=== PATIENT | female | born 1975 | race Caucasian/White ===

== ENCOUNTER 2017-06-12 17:32 | Emergency (ER) | payer SELFPAY ==
[2017-06-12] MEDS ORDERED: DIAZEPAM 10 MG/2 ML INJ SYRINGE ONE (17:55)
[2017-06-12] MEDS ORDERED: KETAMINE HCL 1,000 MG/10 ML VIAL ONE (18:07)
[2017-06-12] MEDS ORDERED: PROPOFOL 200 MG/20 ML VIAL IV ONE (18:27)
--- NOTE | 2017-06-12 19:05 | ER ---
Nurse's Notes [facility] Name: Carolina Springer Age: 41 yrs Sex: Female : 1975 Arrival Date: 06/12/2017 Time: 17:34 Bed 14 Private MD: Diagnosis: Trimalleolar fracture of lower leg;Dislocation and sprain of joints and ligaments at ankle, foot and toe level Presentation: 06/12 17:28 Presenting complaint: EMS states: playing basketball around 1615 and rolled her right sv ankle. +swelling and pulses. Denies head injury or LOC. Fentanyl 100 mcg IVP given at 1704. 20G R AC BP 160/90. Transition of care: patient was not received from another setting of care. Onset of symptoms was June 12, 2017 at 16:15. Care prior to arrival: Splint applied. Splint applied. Medication(s) given: Fentanyl IV initiated. 20 GA, in the right antecubital area. 17:28 Method Of Arrival: EMS: [facility] sv 17:28 Acuity: SAGAR 3 sv Triage Assessment: 17:30 General: Appears in no apparent distress. uncomfortable, well developed, Behavior is sv calm, cooperative, appropriate for age. Pain: Complains of pain in right ankle Pain currently is 6 out of 10 on a pain scale. Pain began 1 hour ago. Is intermittent. EENT: No signs and/or symptoms were reported regarding the EENT system. Neuro: Level of Consciousness is awake, alert, obeys commands, Oriented to person, place, time, situation. Cardiovascular: Patient's skin is warm and dry. Pulses are palpable in right posterior tibial artery and left posterior tibial artery. Respiratory: Respiratory effort is even, unlabored, Respiratory pattern is regular, symmetrical. Derm: Skin is normal, Bruising that is dark purple, on right ankle. Musculoskeletal: Range of motion: limited in right ankle. DIRECTOR OF PUPIL PERSONNEL PROGRAM: 17:39 LMP 05/10/2017 sv Historical: - Allergies: 17:39 Aspirin; sv 17:39 Latex, Natural Rubber; sv - Home Meds: 17:39 None [Active]; sv - PMHx: 17:39 None; sv - PSHx: 17:39 eye; vivek feet; sv - Immunization history:: Adult Immunizations up to date. - Social history:: Smoking status: Patient/guardian denies using tobacco. Screenin:39 Abuse screen: Denies threats or abuse. Denies injuries from another. Nutritional sv screening: No deficits noted. Tuberculosis screening: No symptoms or risk factors identified. Fall Risk No fall in past 12 months (0 pts). No secondary diagnosis (0 pts). IV access (20 points). Ambulatory Aid- None/Bed Rest/Nurse Assist (0 pts). Gait- Impaired (20 pts.). Mental Status- Oriented to own ability (0 pts). Total Esquivel Fall Scale indicates Low Risk Score (25-44 pts). Fall prevention measures have been instituted. Side Rails Up X 2 Placed close to Nursing Station Frequent Obs/Assesments occuring Family Present and informed to notify staff if they need to leave bedside As available Patient and Family Educated on Fall Prevention Program and strategies. Assessment: 18:15 Reassessment: See triage assessment. sv 18:25 Reassessment: Pt placed on 100% NRB per Dr Luciano. sv 18:45 Reassessment: See conscious sedation flowsheet for charting. sv 19:06 General: Appears in no apparent distress. uncomfortable, Behavior is appropriate for ao age, drowsy. Pain: Complains of pain in right ankle. Neuro: Level of Consciousness is awake, alert, obeys commands, Oriented to person, place, time, situation, Appropriate for age Weakness Speech is normal, Facial symmetry appears normal. Cardiovascular: Heart tones S1 S2 Patient's skin is warm and dry. Respiratory: Airway is patent Respiratory effort is even, unlabored, Respiratory pattern is regular, Breath sounds are clear bilaterally. GI: Abdomen is non-distended. : No signs and/or symptoms were reported regarding the genitourinary system. EENT: No signs and/or symptoms were reported regarding the EENT system. Derm: Skin is intact. Musculoskeletal: Right ankle splinted. Patient just woke up from reductions of the right ankle. 20:00 Reassessment: DC Instructions given to patient and family patient understand the POC ao and to follow up with Dr lazo. Vital Signs: 17:39 BP 150 / 95; Pulse 96; Resp 18; Temp 98.5; Pulse Ox 97% ; Weight 99.79 kg; Height 5 ft. sv 6 in. (167.64 cm); Pain 6/10; 18:34 BP 135 / 85; Pulse 93 MON; Resp 18; Pulse Ox 100% on Non-rebreather mask; sv 18:45 BP 138 / 97; Pulse 93; Resp 12; Pulse Ox 100% on Non-rebreather mask; sv 17:39 Body Mass Index 35.51 (99.79 kg, 167.64 cm) sv 18:34 Sinus Rhythm sv ED Course: 17:28 Maintain EMS IV. Dressing intact. Good blood return noted. Site clean \T\ dry. Gauge \T\ sv site: 20G R AC. 17:34 Patient arrived in ED. sv 17:34 Ira Garner, SALLY is Primary Nurse. sv 17:37 Jacqui Bergman FNP-C [facility]. snw 17:37 Davie Luciano MD is Attending Physician. snw 17:38 Triage completed. sv 17:39 Arm band placed on left wrist. sv 17:39 Patient has correct armband on for positive identification. Bed in low position. Call sv light in reach. Side rails up X2. Pulse ox on. NIBP on. Door closed. Head of bed elevated. 17:40 Ice pack to injury. sv 17:45 Assist provider with reduction of right ankle using manipulation, Set up for procedure. sv Performed by Davie Luciano MD Patient tolerated well. 18:14 X-ray completed. Portable x-ray completed in exam room. Patient tolerated procedure ml well. 18:14 Ankle Right 2 View In Process Unspecified. EDMS 18:50 Orthoglass splint: Posterior short lleg splint applied on right leg. stirrup splint sv applied on right leg. 18:59 Ankle Right 2 View In Process Unspecified. EDMS 19:04 John Lazo MD is Referral Physician. snw 19:09 Report given to Kareem ZAVALA. sv 19:16 Primary Nurse role handed off by Ira Garner RN sv 19:39 Kareem Ford RN is Primary Nurse. ao 20:02 IV discontinued, intact, bleeding controlled, No redness/swelling at site. Pressure ao dressing applied. Administered Medications: 18:03 Drug: Valium 5 mg Route: IVP; Site: right antecubital; sv 18:24 Follow up: Response: No adverse reaction sv 18:26 CANCELLED (order changed): Ketamine 100 mg IVP once sv 18:45 Drug: Propofol 100 mg {Note: given by Jacqui Coleman NP.} Route: IVP; Site: right sv antecubital; 19:08 Follow up: Response: No adverse reaction sv 18:46 Drug: Propofol 100 mg {Note: given by Jacqui Coleman NP.} Route: IVP; Site: right sv antecubital; 19:09 Follow up: Response: No adverse reaction sv 19:59 Drug: fentaNYL (PF) 75 mcg Route: IM; Site: right gluteus; ao 20:04 Follow up: Response: Medication administered at discharge. ao Outcome: 19:05 Discharge ordered by MD. whiteside 20:02 Discharged to home ambulatory. ao 20:02 Condition: stable 20:02 Discharge instructions given to patient, Instructed on discharge instructions, follow up and referral plans. Demonstrated understanding of instructions, follow-up care, medications, Prescriptions given X 2. 20:04 Patient left the ED. ao Signatures: Dispatcher [employer] EDIra De Leon RN RN sv Therrien, Shelly, ROSALIE-C ROSALIE-Leonila Kaiser Alex RN RN ao Corrections: (The following items were deleted from the chart) 18:35 18:34 BP 135 / 85; Pulse 93bpm; Resp 18bpm; Pulse Ox 100% Non-rebreather mask; sv sv 18:36 16:25 Reassessment: Pt placed on 100% NRB per Dr Luciano sv
--- NOTE | 2017-06-12 19:05 | EDPHYS ---
Physician Documentation [facility] Name: Carolina Springer Age: 41 yrs Sex: Female : 1975 Arrival Date: 06/12/2017 Time: 17:34 Bed 14 Private MD: ED Physician Davie Luciano HPI: 06/12 18:27 This 41 yrs old Female presents to ER via EMS with complaints of Ankle Injury.snw 18:27 The patient presents with decreased range of motion, a deformity, pain, that is acute. snw Onset: The symptoms/episode began/occurred suddenly, just prior to arrival. Associated signs and symptoms: The patient has no apparent associated signs or symptoms. Severity of symptoms: At their worst the symptoms were moderate, severe. The patient has not experienced similar symptoms in the past. The patient has not recently seen a physician. WEB SITE ADMIN: 17:39 LMP 05/10/2017 sv Historical: - Allergies: 17:39 Aspirin; sv 17:39 Latex, Natural Rubber; sv - Home Meds: 17:39 None [Active]; sv - PMHx: 17:39 None; sv - PSHx: 17:39 eye; vivek feet; sv - Immunization history:: Adult Immunizations up to date. - Social history:: Smoking status: Patient/guardian denies using tobacco. ROS: 18:03 Constitutional: Negative for fever, chills, and weight loss, Eyes: Negative for injury, snw pain, redness, and discharge, ENT: Negative for injury, pain, and discharge, Neck: Negative for injury, pain, and swelling, Cardiovascular: Negative for chest pain, palpitations, and edema, Respiratory: Negative for shortness of breath, cough, wheezing, and pleuritic chest pain, Abdomen/GI: Negative for abdominal pain, nausea, vomiting, diarrhea, and constipation, Back: Negative for injury and pain, : Negative for injury, bleeding, discharge, and swelling, Skin: Negative for injury, rash, and discoloration, Neuro: Negative for headache, weakness, numbness, tingling, and seizure. 18:03 MS/extremity: Positive for injury or acute deformity, decreased range of motion, deformity, pain, swelling, of the right ankle. Exam: 18:02 Constitutional: This is a well developed, well nourished patient who is awake, alert, snw and in no acute distress. Head/Face: Normocephalic, atraumatic. Eyes: Pupils equal round and reactive to light, extra-ocular motions intact. Lids and lashes normal. Conjunctiva and sclera are non-icteric and not injected. Cornea within normal limits. Periorbital areas with no swelling, redness, or edema. ENT: Nares patent. No nasal discharge, no septal abnormalities noted. Tympanic membranes are normal and external auditory canals are clear. Oropharynx with no redness, swelling, or masses, exudates, or evidence of obstruction, uvula midline. Mucous membranes moist. Neck: Trachea midline, no thyromegaly or masses palpated, and no cervical lymphadenopathy. Supple, full range of motion without nuchal rigidity, or vertebral point tenderness. No Meningismus. Chest/axilla: Normal chest wall appearance and motion. Nontender with no deformity. No lesions are appreciated. Cardiovascular: Regular rate and rhythm with a normal S1 and S2. No gallops, murmurs, or rubs. Normal PMI, no JVD. No pulse deficits. Respiratory: Lungs have equal breath sounds bilaterally, clear to auscultation and percussion. No rales, rhonchi or wheezes noted. No increased work of breathing, no retractions or nasal flaring. Abdomen/GI: Soft, non-tender, with normal bowel sounds. No distension or tympany. No guarding or rebound. No evidence of tenderness throughout. Back: No spinal tenderness. No costovertebral tenderness. Full range of motion. Skin: Warm, dry with normal turgor. Normal color with no rashes, no lesions, and no evidence of cellulitis. Neuro: Awake and alert, GCS 15, oriented to person, place, time, and situation. Cranial nerves II-XII grossly intact. Motor strength 5/5 in all extremities. Sensory grossly intact. Cerebellar exam normal. Normal gait. Psych: Awake, alert, with orientation to person, place and time. Behavior, mood, and affect are within normal limits. 18:02 Musculoskeletal/extremity: Extremities: grossly normal except: noted in the right ankle and anterior aspect of right ankle: decreased ROM, deformity, swelling, tenderness, ROM: dislocated fracture, awaiting x-ray and meds, Circulation is intact in all extremities. Sensation intact. Vital Signs: 17:39 BP 150 / 95; Pulse 96; Resp 18; Temp 98.5; Pulse Ox 97% ; Weight 99.79 kg; Height 5 ft. sv 6 in. (167.64 cm); Pain 6/10; 18:34 BP 135 / 85; Pulse 93 MON; Resp 18; Pulse Ox 100% on Non-rebreather mask; sv 18:45 BP 138 / 97; Pulse 93; Resp 12; Pulse Ox 100% on Non-rebreather mask; sv 17:39 Body Mass Index 35.51 (99.79 kg, 167.64 cm) sv 18:34 Sinus Rhythm sv Procedures: 19:09 Splinting: Splint applied to right ankle using Orthoglass splint, applied by tech. post snw reduction film - reveals normal alignment, Examined by me, post splint application: neurovascular intact, 2+ distal pulses palpable, brisk capillary refill noted, Patient tolerated well. Crutch training provided to patient and/or family. Return demonstration given. Reduction: of the right ankle, using manipulation, flexion, Immobilized with OCL splint, Patient tolerated well. Post reduction film - reveals normal alignment. trimalleolar fx. Moderate sedation: Pre-procedure assessment: the patient has been NPO 4 hour(s) prior to arrival, ASA physical classification: II - mild/mod systemic disease that does not interfere with daily routines, Airway assessment: able to hyperextend neck, able to maintain airway, can open mouth without difficulty, Mallampati classification of tongue size: II - faucial pillars and soft palate can be visualized, but uvula is masked by the base of the tongue, Monitoring during procedure: boiler cleaner, continuous pulse oximetry, nurse at bedside at all times, Medications employed: Propofol, Post-procedure assessment: the patient is mildly sedated, Sparks sedation score: 2 - patient cooperative, oriented, and tranquil, Respiratory status: even and unlabored, a reversal agent was not used. MDM: 17:49 Patient medically screened. snw 19:06 Data reviewed: vital signs, nurses notes. Data interpreted: Pulse oximetry: on room air snw is 100 %. Interpretation: normal. Test interpretation: by ED physician or midlevel provider: plain radiologic studies, ankle - fracture dislocation of right ankle, trimalleolar. Counseling: I had a detailed discussion with the patient and/or guardian regarding: the historical points, exam findings, and any diagnostic results supporting the discharge/admit diagnosis, the presence of at least one elevated blood pressure reading (>120/80) during this emergency department visit, radiology results, the need for outpatient follow up, to return to the emergency department if symptoms worsen or persist or if there are any questions or concerns that arise at home. Response to treatment: the patient's symptoms have markedly improved after treatment. 19:20 Physician consultation: John Lazo MD was called at 19:20, was contacted at 19:20, snw regarding patient's condition, outpatient follow-up, in 2-3 days. 06/12 18:14 Order name: Ankle Right 2 View; Complete Time: 19:28 EDMS 06/12 18:21 Order name: Ankle Right 2 View; Complete Time: 19:44 EDMS 06/12 18:01 Order name: Conscious Sedation; Complete Time: 18:22 snw 06/12 18:01 Order name: Posterior Leg Splint: with stirrup and extra padding; Complete Time: 19:09 snw 06/12 18:02 Order name: Suction; Complete Time: 18:04 snw 06/12 18:02 Order name: EKG; Complete Time: 18:02 snw 06/12 18:02 Order name: EKG - Nurse/Tech; Complete Time: 18:34 snw 06/12 19:44 Order name: Crutches; Complete Time: 19:59 snw 06/12 19:44 Order name: Crutch Training; Complete Time: 19:59 snw Administered Medications: 18:03 Drug: Valium 5 mg Route: IVP; Site: right antecubital; sv 18:24 Follow up: Response: No adverse reaction sv 18:26 CANCELLED (order changed): Ketamine 100 mg IVP once sv 18:45 Drug: Propofol 100 mg {Note: given by Jacqui T. DYNAMICIST.} Route: IVP; Site: right sv antecubital; 19:08 Follow up: Response: No adverse reaction sv 18:46 Drug: Propofol 100 mg {Note: given by Jacqui T. DYNAMICIST.} Route: IVP; Site: right sv antecubital; 19:09 Follow up: Response: No adverse reaction sv 19:59 Drug: fentaNYL (PF) 75 mcg Route: IM; Site: right gluteus; ao 20:04 Follow up: Response: Medication administered at discharge. ao Disposition: 06/13 15:36 Co-signature as Attending Physician, Davie Luciano MD I agree with the assessment and wa plan of care. Chart complete. Disposition: 06/12/17 19:05 Discharged to Home. Impression: Trimalleolar fracture of lower leg, Dislocation and sprain of joints and ligaments at ankle, foot and toe level. - Condition is Stable. - Discharge Instructions: Elastic Bandage and RICE, Ankle Fracture, Cast or Splint Care, Crutch Use, Cryotherapy, Heat Therapy. - Prescriptions for Tylenol- Codeine #3 300-30 mg Oral Tablet - take 2 tablet by ORAL route every 6 hours As needed; 30 tablet. orphenadrine citrate 100 mg Oral Tablet Sustained Release - take 1 tablet by ORAL route 2 times per day As needed; 20 tablet. - Medication Reconciliation Form, Thank You Letter, Antibiotic Education, Prescription Opioid Use form. - Follow up: Private Physician; When: 2 - 3 days; Reason: Recheck today's complaints, Continuance of care, Re-evaluation by your physician. Follow up: Emergency Department; When: As needed; Reason: Worsening of condition. Follow up: John Lazo MD; When: 2 - 3 days; Reason: Recheck today's complaints, Continuance of care. Signatures: Dispatcher [employer] Ira Aragon RN Jacqui Lopez, TELEPHONE ORDER SUPERVISOR-C TELEPHONE ORDER SUPERVISOR-Csnw Kareem Ford RN RN ao Appiah, William, MD MD wa Corrections: (The following items were deleted from the chart) 06/12 18:14 18:00 Ankle Right 3 View+RAD.RAD.BRZ ordered. EDMS EDMS 18:21 18:03 Ankle Right 3 View+RAD.RAD.BRZ ordered. EDMS EDMS 18:26 18:01 Ketamine 100 mg IVP once ordered. snw sv 18:26 18:26 Ketamine 100 mg IVP once ordered. sv sv
--- NOTE | 2017-06-12 19:27 | RAD REPORT ---
EXAM DESCRIPTION: RAD - Ankle Right 2 View - 06/12/2017 6:18 pm CLINICAL HISTORY: Basketball injury COMPARISON: None. FINDINGS: Transverse fracture of the medial malleolus is present. There is 10 mm of lateral subluxat ion of the talar dome. An oblique fracture through the distal fibula is present with 20 degrees later al angulation deformity. Posterior malleolus coronal fracture plane is present. The talar dome and po sterior malleolus fracture fragment are dislocated posteriorly approximately 15 mm. No fracture of th e talus or calcaneus. Soft tissue swelling is present. IMPRESSION: Trimalleolar fracture dislocation as detailed.
--- NOTE | 2017-06-12 19:40 | RAD REPORT ---
EXAM DESCRIPTION: RAD - Ankle Right 2 View - 06/12/2017 7:00 pm FINDINGS: AP and cross-table lateral views were obtained labeled post reduction. The dislocated talu s has been reduced to anatomic position. Lateral subluxation or dislocation component has also been c orrected. Tri malleolar fracture fragments are again noted.
[2017-06-12] MEDS ORDERED: FENTANYL CITR 100 MCG/2 ML ONE (19:47)
--- NOTE | 2017-06-15 22:48 | EKG ---
Test Date: 2017-06-12 Test Time: 18:17:48 Cook Tortilla: CRISPIN MEASUREMENT RESULTS: Intervals: Rate: 86 SC: 130 QRSD: 78 QT: 368 QTc: 440 [place]: P: 52 SC: 130 QRS: 64 T: 27 INTERPRETIVE STATEMENTS: Normal sinus rhythm Normal ECG No previous ECG available for comparison Electronically Signed On 06-15-17 22:47:36 CDT by Foreign Crandall
== END 2017-06-12 20:04 | disposition home or self-care (01) ==
LOC: ER 17:32
PROC: 0QSGXZZ Reposition Right Tibia, External Approach (ICD-10-PCS; principal; 2017-06-12)
DX: S82.851A Displaced trimalleolar fracture of right lower leg, initial encounter for closed fracture (principal); S93.304A Unspecified dislocation of right foot, initial encounter; Y93.67 Activity, basketball; Y93.89 Activity, other specified; Y92.9 Unspecified place or not applicable; Z88.6 Allergy status to analgesic agent; Z91.040 Latex allergy status; Z91.048 Other nonmedicinal substance allergy status
CPT/HCPCS: 93005; 96372; 96374; 96375; 99285; J3010; J3360; J3490